=== PATIENT | female | born 1995 ===

== ENCOUNTER → 2021-01-31 | Outpatient (CLI) | payer OTHER | END | disposition home or self-care (01) | LOC: PRENATAL 08:57 | PROVIDERS: ATTEND Obstetrics & Gynecology Maternal & Fetal Medicine | DX: O35.0XX1 Maternal care for (suspected) central nervous system malformation in fetus, fetus 1 (principal); O35.3XX1 Maternal care for (suspected) damage to fetus from viral disease in mother, fetus 1; O98.512 Other viral diseases complicating pregnancy, second trimester; Z36.89 Encounter for other specified antenatal screening; Z3A.24 24 weeks gestation of pregnancy ==

== ENCOUNTER 2021-05-02 19:35 | Inpatient (IN) | payer OTHER ==
[~2021-05-02] VITALS: Ht 157.5 cm; Wt 86.2 kg
[2021-05-02] MEDS ORDERED: PRENATAL TABLE1 EAC1 PO (20:22)
[2021-05-02] MEDS ORDERED: FOLIC ACID0.8 M1 PO (20:23)
[2021-05-02] MEDS ORDERED: NIFEDIPINE20 MG PO (20:23)
== END 2021-05-06 18:48 | disposition home or self-care (01) | DRG 833 ==
LOC: OBS/DEL 19:35 → LDR 05-03 10:13 → OB/GYN 05-04 09:59
PROVIDERS: ADMIT Obstetrics & Gynecology Obstetrics; ATTEND Obstetrics & Gynecology Obstetrics
PROC: 4A1HXFZ Monitoring of Products of Conception, Cardiac Rhythm, External Approach (ICD-10-PCS; principal; 2021-05-03)
PROC: BY4FZZZ Ultrasonography of Third Trimester, Single Fetus (ICD-10-PCS; 2021-05-03)
DX: O13.3 Gestational [pregnancy-induced] hypertension without significant proteinuria, third trimester (principal); Z3A.36 36 weeks gestation of pregnancy

== ENCOUNTER 2021-05-09 08:59 | Inpatient (IN) | payer OTHER ==
[~2021-05-09] VITALS: Ht 157.5 cm; Wt 68.0 kg
[~2021-05-09 08:59] MED LIST: FOLIC ACID0.8 M1 PO; NIFEDIPINE20 MG PO; PRENATAL TABLE1 EAC1 PO
== END 2021-05-11 13:50 | disposition home or self-care (01) | DRG 807 ==
LOC: OB/GYN 08:59 → LDR 08:59 → OB/GYN 16:54
PROVIDERS: ADMIT Obstetrics & Gynecology Obstetrics; ATTEND Obstetrics & Gynecology Obstetrics
PROC: 10E0XZZ Delivery of Products of Conception, External Approach (ICD-10-PCS; principal; 2021-05-09)
PROC: 10907ZC Drainage of Amniotic Fluid, Therapeutic from Products of Conception, Via Natural or Artificial Opening (ICD-10-PCS; 2021-05-09)
PROC: 4A1HXFZ Monitoring of Products of Conception, Cardiac Rhythm, External Approach (ICD-10-PCS; 2021-05-09)
DX: O80 Encounter for full-term uncomplicated delivery (principal); Z37.0 Single live birth; Z3A.37 37 weeks gestation of pregnancy; Z20.822 Contact with and (suspected) exposure to COVID-19